=== PATIENT | female | born 1985 | race Caucasian/White ===

== ENCOUNTER 2017-10-30 10:23 | Emergency (ER) | payer OTHER, MEDICAID ==
[2017-10-30] MEDS ORDERED: NS 0.9% 1000 ML* 1,000 ML IV ONE (11:40)
--- NOTE | 2017-10-30 11:55 | ED ---
Abdominal Pain/Female - HPI Summary HPI Summary: Patient presents to the ED with chief complaint of feeling nausea with some vomiting 3 days. She is 6 months . She denies any diarrhea, fevers, sweats, chills. She continues to eat and drink, but has decreased PO intake. She states she called her health unit coordinator this morning who advised her to come to the ED to receive some fluids for possible dehydration. She also has a history of migraines and has been feeling symptomatic of such for the last few days with a slight colored aura to the right periphery 2 days ago. She denies any visual disturbances currently. Symptoms are aggravated by nothing, relieved with nothing. She has not tried anything for the pain or the nausea. Denies abdominal pain, back pain, or urinary symptoms. She declines medications on arrival to the ED. Vital signs are stable on arrival. She denies sick contacts or recent travel. She has been otherwise healthy and takes no medications other than vitamins. - History of Current Complaint Chief Complaint: EDFluSymptoms Stated Complaint: N/V/DIZZINESS/ Time Seen by Provider: 10/30/17 11:26 Hx Obtained From: Patient ?: No Onset/Duration: Gradual Onset Timing: Constant Severity Initially: Moderate Severity Currently: Moderate Pain Intensity: 0 Pain Scale Used: 0-10 Numeric Location: Diffuse - Denies any abdominal pain Radiates: No Character: Cramping Aggravating Factor(s): Nothing Alleviating Factor(s): Nothing Associated Signs and Symptoms: Positive: Nausea, Vomiting. Negative: Back Pain , Constipation, Blood in Stool, Urinary Symptoms, Decreased Appetite, Vaginal Bleeding, Vaginal Discharge, Diarrhea - Risk Factors Ectopic Risk Factor: Maternal Age ^ 30 Ovarian Torsion Risk Factor: Reproductive Age Allergies/Adverse Reactions: Allergies Allergy/AdvReac Type Severity Reaction Status Date / Time No Known Allergies Allergy Verified 10/30/17 10:38 PMH/Surg Hx/FS Hx/Imm Hx Previously Healthy: Yes - Immunization History Hx Pertussis Vaccination: No Immunizations Up to Date: Unable to Obtain/Confirm Infectious Disease History: No Infectious Disease History: Denies: Traveled Outside the [place] in Last 30 Days - Social History Occupation: Employed Full-time Lives: With Family Alcohol Use: None Hx Substance Use: No Substance Use Type: Reports: None Hx Tobacco Use: Yes Smoking Status (MU): Former Smoker Have You Smoked in the Last Year: No Review of Systems Constitutional: Negative Negative: Fever, Chills, Fatigue, Skin Diaphoresis Eyes: Negative Cardiovascular: Negative Gastrointestinal: Negative Positive: Vomiting, Nausea Genitourinary: Negative Positive: no symptoms reported, see HPI Musculoskeletal: Negative Neurological: Negative All Other Systems Reviewed And Are Negative: Yes Physical Exam Triage Information Reviewed: Yes Vital Signs On Initial Exam: Initial Vitals Temp Pulse Resp BP Pulse Ox 98.6 F 84 16 104/54 98 10/30/17 10:35 10/30/17 10:35 10/30/17 10:35 10/30/17 10:35 10/30/17 10:35 Vital Signs Reviewed: Yes Appearance: Positive: Well-Appearing, No Pain Distress, Well-Nourished Skin: Positive: Warm, Skin Color Reflects Adequate Perfusion Head/Face: Positive: Normal Head/Face Inspection Eyes: Positive: EOMI, MIL, Conjunctiva Clear Neck: Positive: Supple, Nontender, No Lymphadenopathy Respiratory/Lung Sounds: Positive: Clear to Auscultation, Breath Sounds Present Cardiovascular: Positive: Normal, RRR, Pulses are Symmetrical in both Upper and Lower Extremities Abdomen Description: Positive: Nontender, No Organomegaly, Soft Musculoskeletal: Positive: Strength/ROM Intact Neurological: Positive: Speech Normal Psychiatric: Positive: Normal, Affect/Mood Appropriate Diagnostics - Vital Signs Vital Signs Temp Pulse Resp BP Pulse Ox 10/30/17 11:26 98 F 79 18 106/63 99 10/30/17 10:35 98.6 F 84 16 104/54 98 - Laboratory Result Diagrams: 10/30/17 12:19 10/30/17 12:19 Lab Statement: Any lab studies that have been ordered have been reviewed, and results considered in the medical decision making process. Abdominal Pain Fem Course/Dx - Course Course Of Treatment: During the course of treatment, patient is evaluated for nausea, vomiting. Flu obtained and negative. She states she has been slightly nauseous through her , but nothing recently. Denies any sick contacts , fevers, sweats, chills. She continues to eat and drink, but endorses decreased by mouth intake. She was advised by her health unit coordinator to come to the ED for IV fluids and assessment. She appears well on arrival. Declines any medications at this time and is just requesting IV fluids. I have advised we obtain labs which she is in agreement. Labs obtained and are unremarkable. She is given 650 mg Tylenol and 1 L normal saline. She is feeling improved and is requesting home. She continues to feel movement and is not concerned with any demise. Denies vaginal bleeding.She is discharged with return precautions and she will follow-up with her health unit coordinator early next week. She is to return for any worsening symptoms, nausea vomiting, or any pain. - Diagnoses Provider Diagnoses: Nausea/vomiting in Discharge - Discharge Plan Condition: Stable Disposition: HOME Patient Education Materials: Nausea and Vomiting in (ED) Referrals: Wale Phillips MD [Primary Care Provider] - Additional Instructions: Please follow up with [facility] May take Tylenol 650 mg up to 3 times daily for headaches Continue to eat crackers, chicken noodle soup, applesauce, bananas, rice If you develop any worsening symptoms, return to the ED immediately
[2017-10-30 12:30] LABS: ABS Basophils 0.1 10^3/ul (0-0.2); ABS Eosinophils 0.2 10^3/ul (0-0.6); ABS Lymphocytes 1.4 10^3/ul (1.0-4.8); ABS Monocytes 0.8 10^3/ul (0-0.8); ABS Neutrophils 7.7 10^3/ul (1.5-7.7); ABS Nucleated RBC 0 10^3/ul; Eosinophil % 1.6 % (0-6); Hematocrit 31 % (35-47); Hemoglobin 10.5 g/dl (12.0-16.0); Lymphocyte % 13.6 % (25-47); Mean Corpuscular HGB Conc 34 g/dl (31-36); Mean Corpuscular Hemoglobin 29 pg (27-31); Mean Corpuscular Volume 86 fL (80-97); Mean Platelet Volume 8 um3 (7.4-10.4); Nucleated Red Blood Cells % 0; Platelet Count 266 10^3/ul (150-450); Red Blood Count 3.58 10^6/ul (4.0-5.4); Red Cell Distribution Width 15 % (10.5-15); White Blood Count 10.1 10^3/ul (3.5-10.8)
[2017-10-30] MEDS ORDERED: Acetaminophen TAB* 325 MG PO ONE (12:41)
[2017-10-30 12:45] LABS: EGFR Non-African American 152.6 (>60)
[2017-10-30 13:25] VITALS: BP 103/56
== END 2017-10-30 13:23 | disposition home or self-care (01) ==
LOC: ED 10:23
DX: O21.9 Vomiting of pregnancy, unspecified (principal); Z87.891 Personal history of nicotine dependence; Z3A.26 26 weeks gestation of pregnancy
CPT/HCPCS: 36415; 80053; 83605; 85025; 87502; 99282; A9270-GY

== ENCOUNTER 2018-01-22 05:23 | Inpatient (IN) | payer OTHER, MEDICAID ==
--- NOTE | 2018-01-22 05:52 | HP ---
General Information - General Information Maternal Age: 30 Grav: 2 Para: 1 SAB: 0 IEA: 0 Estimated Due Date: 01/31/18 Determined By: Early Ultrasound Gestational Age in Weeks and Days: 38 Weeks and 0 Days Maternal Blood Type and Rh: A Negative - Results this Serology/RPR Result: Non-Reactive Rubella Result: Immune HBsAg Result: Negative HIV Result: Negative GBS Culture Result: Negative Past Medical History Delivery History: Hx Uncomplicated Vaginal Delivery Pertinent Past Medical History: Non-Contributory Pertinent Past Surgical History: See Records Past Surgical History Comment: Ovarian cystectomy 2003 Pertinent Family History: Non-Contributory - Antepartal Records Antepartal Records: Reviewed, Uncomplicated Review of Systems Constitutional: Uncomfortable CV Complaint: No Respiratory: Shortness of Breath: No Gastrointestinal: Normal Bowel Movement Genitourinary: No Dysuria, No Bleeding, No Leaking Fluid Musculoskeletal: Contractions Neurological: No Headache, No Visual Changes Movement: Normal Exam Allergies/Adverse Reactions: Allergies No Known Allergies Allergy (Verified 10/30/17 10:38) BP 114/76 T 97.6 HR 60 RR 18 O2 100 - Measurements Height: 5 ft 7 in Weight: 177 lb Body Mass Index (BMI): 27.7 Pre- Weight: 140 lb - Exam Abdomen: No Upper Quadrant Pain Breast: Breast Exam Deferred CVA: No CVA Tenderness Extremities: No Edema Heart: Normal Rhythm/Heart Sounds HEENT: No Significant Findings Lungs: Clear Bilaterally Rectal: Rectal Exam Deferred Reflexes: DTR 2+, - - no clonus Thyroid: - - WNL @ entry to care - Abdominal Exam Abdomen Exam: Non-Tender Abdomen Exam Comment: EFW 8lb - Ultrasound/Biophysical Profile Ultrasound Status: Not Done Targeted Exam Findings Cervical Exam: 7cm Effacement: 100% Station: 0 Presenting Part: Vertex Membrane Status: Bulging Bleeding/Discharge: None EFM Findings - External Monitor Findings Baseline Heart Rate: 125 External Monitor Findings: Accelerations Present, No Pattern of Variable or Late Decelerations, Variability Moderate Contractions: Regular, Moderate, Strong, 45-90 Seconds Contraction Frequency: Q3-4 Assessment/Plan - Reason for Visit Reason for Visit: IUP @ 38+0 weeks gestation here in active labor. IBOW. No evidence metabolic acidemia - Plan Plan: Active Labor Plan Comment: Admit to L&D, desires unmedicated . Anticipate SVB - Date/Time of Admission Date of Admission: 01/22/18 Time of Admission: 05:35
[2018-01-22] MEDS ORDERED: Witch Hazel PAD* JAR TOPICAL PRN (07:54)
[2018-01-22] MEDS ORDERED: Acetaminophen TAB* 325 MG PO PRN (07:54)
[2018-01-22] MEDS ORDERED: Dibucaine 1% 28.35 GM TUBE PR PRN (07:54)
[2018-01-22] MEDS ORDERED: Glycerin ADULT SUPP PR PRN (07:54)
[2018-01-22] MEDS ORDERED: RHO D Immune Globulin (HUMAN)* 300 MCG = 1,500 I.U. INJ IM ONE (07:54)
[2018-01-22] MEDS ORDERED: OXYTOCIN* 10 UNITS/ML 1 ML VIAL IM ONE (07:54)
[2018-01-22] MEDS ORDERED: Tetan/Diph/Pertus SYR(Tdap)* 0.5 ML SYR(BOOSTRIX) use SYR IM ONE (09:00)
[2018-01-22] MEDS: Ibuprofen TAB* 600 MG PO PRN ×2 (09:32→16:00)
[2018-01-22] MEDS: Docusate CAP* 100 MG PO SCH ×3 (16:00→20:44)
[2018-01-23 07:15] LABS: ABS Basophils 0.1 10^3/ul (0-0.2); ABS Eosinophils 0.5 10^3/ul (0-0.6); ABS Lymphocytes 2.3 10^3/ul (1.0-4.8); ABS Monocytes 0.8 10^3/ul (0-0.8); ABS Neutrophils 10.7 10^3/ul (1.5-7.7); ABS Nucleated RBC 0 10^3/ul; Eosinophil % 3.2 % (0-6); Hematocrit 32 % (35-47); Hemoglobin 10.4 g/dl (12.0-16.0); Lymphocyte % 15.7 % (25-47); Mean Corpuscular HGB Conc 32 g/dl (31-36); Mean Corpuscular Hemoglobin 26 pg (27-31); Mean Corpuscular Volume 80 fL (80-97); Mean Platelet Volume 8.1 um3 (7.4-10.4); Nucleated Red Blood Cells % 0; Platelet Count 274 10^3/ul (150-450); Red Blood Count 4.02 10^6/ul (4.0-5.4); Red Cell Distribution Width 16 % (10.5-15); White Blood Count 14.4 10^3/ul (3.5-10.8)
[2018-01-23] MEDS: Docusate CAP* 100 MG PO SCH ×3 (09:31→20:40)
[2018-01-23] MEDS: Ferrous Gluconate TAB* 324 MG TAB PO SCH ×2 (09:33→21:03)
[2018-01-23] MEDS: Ibuprofen TAB* 600 MG PO PRN (13:54)
[2018-01-24 08:10] VITALS: BP 120/71
[2018-01-24] MEDS: Docusate CAP* 100 MG PO SCH (09:59)
== END 2018-01-24 10:18 | disposition home or self-care (01) | DRG 775 ==
LOC: MCHOBOUT 05:23 → MCHOB 05:38
PROVIDERS: ADMIT Midwife; ATTEND Midwife
PROC: 4A1HX4Z Monitoring of Products of Conception, Cardiac Electrical Activity, External Approach (ICD-10-PCS; principal; 2018-01-22)
PROC: 10E0XZZ Delivery of Products of Conception, External Approach (ICD-10-PCS; 2018-01-22)
DX: O69.81X0 Labor and delivery complicated by cord around neck, without compression, not applicable or unspecified (principal); G43.909 Migraine, unspecified, not intractable, without status migrainosus; O75.89 Other specified complications of labor and delivery; Z3A.38 38 weeks gestation of pregnancy; Z37.0 Single live birth
CPT/HCPCS: 36415; 85025; A9270-GY; J2590

== ENCOUNTER 2019-01-01 17:35 | Emergency (ER) | payer MEDICAID, OTHER ==
--- NOTE | 2019-01-01 18:25 | UC ---
Throat Pain/Nasal [place] HPI - HPI Summary HPI Summary: 33 yo female presents with sore throat for the last 2-3 days. She tells me that her son had strep about 3 weeks ago and she is concerned she may have it. She is currently breast feeding. She is eating and drinking well. Denies fever, chills, sinus symptoms, cough, rash. - History of Current Complaint Stated Complaint: SORE THROAT Time Seen by Provider: 01/01/19 18:25 Hx Obtained From: Patient Onset/Duration: Gradual Onset Severity: Moderate Pain Intensity: 3 Pain Scale Used: 0-10 Numeric - Allergies/Home Medications Allergies/Adverse Reactions: Allergies Allergy/AdvReac Type Severity Reaction Status Date / Time No Known Allergies Allergy Verified 10/30/17 10:38 PMH/Surg Hx/FS Hx/Imm Hx - Additional Past Medical History Additional PMH: None - Surgical History Surgical History: None - Family History Known Family History: Positive: None - Social History Occupation: Employed Full-time Lives: With Family Alcohol Use: None Substance Use Type: None Smoking Status (MU): Former Smoker Have You Smoked in the Last Year: No - Immunization History Most Recent Influenza Vaccination: unknown Most Recent Tetanus Shot: unknown Most Recent Pneumonia Vaccination: unknown Review of Systems All Other Systems Reviewed And Are Negative: Yes Constitutional: Positive: Negative Skin: Positive: Negative Eyes: Positive: Negative ENT: Positive: Sore Throat Respiratory: Positive: Negative Cardiovascular: Positive: Negative Gastrointestinal: Positive: Negative Neurological: Positive: Negative Psychological: Positive: Negative Physical Exam - Summary Physical Exam Summary: GENERAL: NAD. WDWN. No pain distress. SKIN: No rashes, sores, lesions, or open wounds. HEENT: Head: AT/NC Eyes: Conjunctiva clear without inflammation or discharge. Ears: Hearing grossly normal. TMs intact, no bulging, erythema, or edema. Nose: Nasal mucosa pink and moist. NTTP maxillary and frontal sinus. Throat: Posterior oropharynx mild erythema and 2+ tonsillar enlargement. No exudates. Uvula midline. No hoarse voice or muffled voice. NECK: Supple. Nontender. No lymphadenopathy. CHEST: CTAB. No r/r/w. No accessory muscle use. Breathing comfortably and in no distress. CV: RRR. Without m/r/g. Pulses intact. Cap refill <2seconds NEURO: Alert. PSYCH: Age appropriate behavior. Triage Information Reviewed: Yes Vital Signs: Vital Signs: Temp Pulse Resp BP Pulse Ox 97.9 F 84 16 123/80 99 01/01/19 18:26 01/01/19 18:26 01/01/19 18:26 01/01/19 18:26 01/01/19 18:26 Laboratory Tests 01/01/19 18:43 Group A Strep Rapid Positive A Vital Signs Reviewed: Yes Throat Pain/Nasal Course/Dx - Course Course Of Treatment: POC strep positive. Rx for amoxicillin - Differential Dx/Diagnosis Provider Diagnosis: Sore throat Discharge - Sign-Out/Discharge Documenting (check all that apply): Patient Departure All imaging exams completed and their final reports reviewed: No Studies - Discharge Plan Condition: Stable Disposition: HOME Prescriptions: Amoxicillin PO (*) [Amoxicillin 500 MG CAP*] 500 mg PO Q12H #20 cap Patient Education Materials: Strep Throat (DC) Referrals: Wale Phillips MD [Primary Care Provider] - Additional Instructions: If you develop a fever, shortness of breath, chest pain, new or worsening symptoms - please call your PCP or go to the ED. - Billing Disposition and Condition Condition: STABLE Disposition: Home
[2019-01-01 18:32] VITALS: BP 123/80
== END 2019-01-01 19:00 | disposition home or self-care (01) ==
LOC: UCEAST 17:35
DX: J02.9 Acute pharyngitis, unspecified (principal); Z87.891 Personal history of nicotine dependence
CPT/HCPCS: 87651; 99212; G0463

== ENCOUNTER 2019-11-01 10:52 | Inpatient (IN) | payer OTHER, MEDICAID ==
--- NOTE | 2019-11-01 11:21 | HP ---
General Information - Reason for Visit Contractions starting this AM, increasing in intensity and frequency, -LOF, -VB. - General Information Maternal Age: 34 Grav: 3 Para: 2 SAB: 0 IEA: 0 Estimated Due Date: 11/12/19 Determined By: Early Ultrasound Gestational Age in Weeks/Days: 38.3 Maternal Blood Type and Rh: A Negative - Results this Serology/RPR Result: Non-Reactive Rubella Result: Immune HBsAg Result: Negative HIV Result: Negative GBS Culture Result: Negative Past Medical History Delivery History: Hx Uncomplicated Vaginal Delivery Pertinent Past Medical History: See Records - headaches, pinched sciatic nerve Pertinent Past Surgical History: None Pertinent Family History: See Records - PGF: CVD, HTN; MGM: cirrhosis of the liver; MGF: CVD; m aunt: liver transplant - Antepartal Records Antepartal Records: Reviewed, Complicated by: - AMA, marginal previa ( resolved) Review of Systems Constitutional: Uncomfortable CV Complaint: No Respiratory: Shortness of Breath: No Gastrointestinal: No Nausea/Vomiting, Normal Bowel Movement Genitourinary: No Dysuria, No Bleeding, No Leaking Fluid Musculoskeletal: No Epigastric Pain, Contractions Neurological: No Headache, No Visual Changes Movement: Normal Exam Allergies/Adverse Reactions: Allergies No Known Allergies Allergy (Verified 10/30/17 10:38) T: 98.1, P:89, R:20, BP:115/53, O2:100% - Measurements Height: 5 ft 4 in Weight: 180 lb Weight in lbs: [phone] Body Mass Index (BMI): 30.9 Pre- Weight: 145 lb Weight Gained This : 35 lbs and 0 ozs - Exam Breast: Breast Exam Deferred CVA: No CVA Tenderness Extremities: No Edema Heart: Normal Rhythm/Heart Sounds HEENT: No Significant Findings Lungs: Clear Bilaterally Rectal: Rectal Exam Deferred Reflexes: DTR 2+ - Abdominal Exam Abdomen Exam: Fundal Height Consistent with Dates - Ultrasound/Biophysical Profile Ultrasound Status: Not Done Targeted Exam Findings Estimated Weight: 8lbs Presenting Part: Vertex Membrane Status: Bulging Bleeding/Discharge: Bloody Show EFM Findings - External Monitor Findings Baseline Heart Rate: 140 External Monitor Findings: Accelerations Present, No Pattern of Variable or Late Decelerations, Variability Moderate, Baseline Stable Contractions: Regular, Moderate, 45-90 Seconds Contraction Frequency: 2-3 Assessment/Plan - Assessment 34 y.o. , 38w3d EGA, active labor - Plan Plan: Admit - Anticipate Vaginal Delivery - Date/Time of Admission Date of Admission: 11/01/19 Time of Admission: 11:00
[2019-11-01] MEDS ORDERED: Buffered Lidocaine 1% SYRIN* 1 ML/SYRINGE INTRADERM ONE (11:22)
[2019-11-01] MEDS ORDERED: Lactated Ringers 1000 ML Bag* 1,000 ML IV ONE (11:22)
[2019-11-01] MEDS ORDERED: Lactated Ringers 1000 ML Bag* 1,000 ML IV SCH ×2 (12:00→13:00)
[2019-11-01] MEDS ORDERED: Glycerin ADULT SUPP PR PRN (12:55)
[2019-11-01] MEDS ORDERED: Witch Hazel PAD* JAR TOPICAL PRN (12:55)
[2019-11-01] MEDS ORDERED: Dibucaine 1% 28.35 GM TUBE PR PRN (12:55)
[2019-11-01] MEDS ORDERED: Acetaminophen TAB* 325 MG PO PRN (12:55)
--- NOTE | 2019-11-01 12:55 | PROCNOTE ---
[facility] OB: Delivery Note - Delivery A Date of : 11/01/19 Time of : 12:39 Sex: Female Score 1 Minute: 8 Score 5 Minutes: 9 Gestational Age in Weeks and Days at Delivery: 38 Weeks and 3 Days Delivery Method: Spontaneous Vaginal Labor: Spontaneous Did Patient attempt ?: N/A, No Previous Amniotic Fluid: Clear Estimated Blood Loss: 150 Anesthesia/Analgesia: None Delivered By: Kiera Dennis - Nursery Level of Nursery: Regular/Bedside - Perineum Perineal Injury: None/Intact Perineal Repair: None
[2019-11-01 13:23] LABS: Urine Benzodiazepine Screen None Detected (None Detect); Urine Opiates Screen None Detected (None Detect)
[2019-11-01] MEDS: Docusate CAP* 100 MG PO SCH ×2 (15:54→20:26)
[2019-11-01] MEDS: Ibuprofen TAB* 600 MG PO PRN (17:19)
[2019-11-01] MEDS ORDERED: Simethicone TAB* 80 MG TAB.CHEW PO SCH (17:30)
[2019-11-02] MEDS: Ibuprofen TAB* 600 MG PO PRN ×2 (02:03→19:27)
[2019-11-02] MEDS: Docusate CAP* 100 MG PO SCH ×4 (02:03→21:19)
[2019-11-02 08:02] LABS: ABS Eosinophils 0.1 10^3/ul (0-0.6); ABS Lymphocytes 1.7 10^3/ul (1.0-4.8); ABS Monocytes 0.9 10^3/ul (0-0.8); ABS Neutrophils 11.7 10^3/ul (1.5-7.7); Eosinophil % 0.9 %; Hematocrit 35 % (35-47); Hemoglobin 11.5 g/dL (12.0-16.0); Lymphocyte % 11.7 %; Mean Corpuscular HGB Conc 33 g/dL (31-36); Mean Corpuscular Hemoglobin 28 pg (27-31); Mean Corpuscular Volume 84 fL (80-97); Platelet Count 243 10^3/uL (150-450); Red Blood Count 4.15 10^6 /uL (3.70-4.87); Red Cell Distribution Width 15 % (10-15); White Blood Count 14.5 10^3/uL (3.5-10.8)
[2019-11-02] MEDS ORDERED: Ferrous Gluconate TAB* 324 MG TAB PO SCH (09:00)
[2019-11-03 08:14] VITALS: BP 101/73
[2019-11-03] MEDS: Docusate CAP* 100 MG PO SCH (10:43)
== END 2019-11-03 13:29 | disposition home or self-care (01) | DRG 807 ==
LOC: MCHOBOUT 10:52 → MCHOB 11:03
PROVIDERS: ADMIT Midwife; ATTEND Midwife
PROC: 10E0XZZ Delivery of Products of Conception, External Approach (ICD-10-PCS; principal; 2019-11-01)
PROC: 4A1HXCZ Monitoring of Products of Conception, Cardiac Rate, External Approach (ICD-10-PCS; 2019-11-01)
DX: O80 Encounter for full-term uncomplicated delivery (principal); Z37.0 Single live birth; Z28.21 Immunization not carried out because of patient refusal; Z3A.38 38 weeks gestation of pregnancy
CPT/HCPCS: 36415; 80307; 85025; 88720; 92587; A9270-GY; G0480